=== PATIENT | female | born 1970 | race Caucasian/White ===

== ENCOUNTER → 2016-10-03 | Day surgery (SDC) | payer OTHER ==
[~2016-10-03] VITALS: Ht 158.8 cm; Wt 110.0 kg
[~2016-10-03] MED LIST: ALPR.5 PO; FAMOTIDINE 20 MG/2 ML VIAL ONE; HYDR25TA5 PO; IBUP800T23 PO; KETOROLAC TROMETHAMINE 60 MG/2 ML (IM) VIAL IM ONE; LACTATED RINGER'S 1000 ML INJ 1,000 ML ONE; LORA1TAB12 PO; LOSA100T PO; MIDAZOLAM HCL 2 MG/2 ML VIAL ONE; MISO200T VAGINAL; ONDANSETRON HCL 4 MG/2 ML VIAL IV PUSH ONE; PROPOFOL 200 MG/20 ML AMP IV ONE; SERT-129 PO; TRAM50TA PO; ePHEDrine/NS 25 MG/5 ML SYR IV ONE; fentaNYL CITRATE 250 MCG/5 ML AMP ONE; oxyCODONE/ACETAMINOPHEN 5 MG/325 MG TAB ONE
[2016-10-03 09:32] LABS: BLOOD, URINE TRACE (NEG); GLUCOSE,URINE NEG (NEG); KETONE, URINE NEG (NEG); NITRITE,URINE NEG (NEG)
[2016-10-03 09:33] LABS: MEAN CELL VOLUME 91.6 FL (80.0-100.0); MEAN CORPUSCULAR HEMOGLOBIN 31.1 PG (27.0-34.0); PLATELET COUNT 130 TH/MM3 (150-450); RED BLOOD COUNT 4.04 MIL/MM3 (4.00-5.30); RED CELL DISTRIBUTION WIDTH 13.1 % (11.6-17.2); REVIEW FLAG FINAL; WHITE BLOOD COUNT 4.6 TH/MM3 (4.0-11.0)
[2016-10-03 09:35] VITALS: BP 123/85; PULSE 62; RESP 16; TEMP 97.7; O2SAT 97
[2016-10-03 09:36] LABS: METHOD OF COLLECTION CATH; URINE COLOR YELLOW (YELLW/STRAW)
[2016-10-03 09:38] LABS: MUCUS URINE FEW /lpf (OCC); RBC, URINE 0-3 /hpf (0-3)
[2016-10-03 09:39] LABS: COMMENT (UR) CATH-CULT NOT IND; CULTURE IF INDICATED CATH CULTURE NOT IND; SQUAMOUS EPITHELIAL CELL URINE > 8 /hpf (0-5)
[2016-10-03 12:41] VITALS: PULSE 72
[2016-10-03 13:30] VITALS: PULSE 68; TEMP 98.1
[2016-10-03 14:20] VITALS: BP 122/86; PULSE 76; RESP 14; O2SAT 100
--- NOTE | 2016-11-04 16:52 | PD.OP ---
Operative Report Date of Surgery: October 03, 2016 Preoperative Diagnosis: (1) Benign endometrial hyperplasia (2) Excessive and frequent menstruation with regular cycle (3) Polyp of corpus uteri Postoperative Diagnosis: (1) Benign endometrial hyperplasia (2) Excessive and frequent menstruation with regular cycle (3) Polyp of corpus uteri Procedure: Hysteroscopy with polypectomy using MyoSure device Anesthesia: General, Dr. Fuentes Surgeon: Pretty Gomez Marketing Operations Assistant(s): Sheron Graf Surgeon: n/a Operation and Findings: Indications: [-] Findings: Patient was found on hysteroscopic view to have [endometrial polyp-] confirmed to be removed by repeat hysteroscopy post Myosure polypectomy Procedure: Patient was brought to the OR and laid supine on the table. After inducing general anesthesia she was positioned in low stirrups in dorso- lithotomy position. An open-sided speculum was placed in the vagina after Betadine prep and time out. The anterior lip of the cervix was grasped with a single tooth tenaculum, and the cervix was dilated to accept a Myosure rigid hysteroscope. After viewing and taking pictures, the polyp was morsellated with the Myosure device. The endometrium was the thoroughly sampled. Moderate tissue returned. A second hysteroscopic view confirmed that all the findings described above were included in the specimen. The procedure being complete, the instruments were removed, the patient was replaced supine and she was awakened. She was transferred to the PACU breathing on her own in stable condition. Sponge, needle, and instrument counts were correct. Pretty Gomez MD Nov 04, 2016 16:52
== END | disposition home or self-care (01) ==
LOC: PHSDC 07:38
PROVIDERS: ATTEND Obstetrics & Gynecology
DX: N92.0 Excessive and frequent menstruation with regular cycle (principal); N84.0 Polyp of corpus uteri; I10 Essential (primary) hypertension; E78.00 Pure hypercholesterolemia, unspecified
CPT/HCPCS: 00952; 58558; 81001; 85027; 88305; J1885; J2250; J2405; J3010; J7120